=== PATIENT | male | born 1955 | race Caucasian/White ===

== ENCOUNTER 2022-04-15 16:24 | Emergency (ER) | payer OTHER, MEDICARE ==
[~2022-04-15] VITALS: Ht 180.3 cm; Wt 108.8 kg
[2022-04-15 16:30] VITALS: BP 158/90
--- NOTE | 2022-04-15 16:43 | ED General ---
General Chief Complaint: Medical Screening Exam Stated Complaint: MEDICAL CLEARANCE Source of Information: Patient History of Present Illness Date Seen by Provider: April 15, 2022 Time Seen by Provider: 16:29 Initial Comments 66-year-old male brought in by police for medical clearance to go to snf. Patient states he has no complaints. He had crushed up half of a hydrocodone 10/325 mg pill and snorted it prior to the police taking him into custody. He states he does occasionally to help get the medicine into the system faster. He denies having any acute pain currently. He has chronic pain from rheumatoid arthritis. He states that is currently controlled. He has no current medical complaints. Associated Systoms: No Chest Pain; Cough (intermittent); No Diaphoresis, No Fever/Chills, No Headaches, No Loss of Appetite, No Malaise, No Nausea/Vomiting, No Rash, No Seizure, No Shortness of Air, No Syncope, No Weakness Allergies and Home Medications Allergies Coded Allergies: No Known Drug Allergies (Unverified , 04/15/22) Patient Home Medication List Home Medication List Reviewed: Yes Review of Systems Review of Systems Constitutional: no symptoms reported EENTM: no symptoms reported Respiratory: cough (intermittent) Cardiovascular: no symptoms reported Gastrointestinal: no symptoms reported Genitourinary: no symptoms reported Musculoskeletal: see HPI (chronic pain from Rheumatoid Arthritis) Skin: no symptoms reported Psychiatric/Neurological: No Symptoms Reported Past Vtxwibh-Fgqhke-Tienjw Hx Past Medical History Surgery/Hospitalization HX: Rheumatoid Arthritis Physical Exam Vital Signs Vital Signs - First Documented 04/15/22 16:30 Temp 36.3 Pulse 83 Resp 18 B/P (MAP) 158/90 (112) Pulse Ox 97 O2 Delivery Room Air Capillary Refill : Height, Weight, BMI Height: '" Weight: lbs. oz. 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 He has no hypoxia or signs of airway compromise. He takes the pain medicine chronically so lab work would not be beneficial. Encouraged to take the medicine as prescribed and not crush and snort it. Follow-up with his regular provider for continued concerns Departure Impression Primary Impression: Encounter for medical screening examination Disposition: HOME, SELF-CARE Condition: Stable Departure-Patient Inst. Decision time for Depature: 16:41 Referrals: [facility] [place] Follow up with Dr. Vidal Partida as needed for continued concerns Patient Instructions: Medication Safety, Adult Add. Discharge Instructions: Medically clear for incarceration Take medicine as prescribed by your doctor. If having continued concerns check back with Dr. Partida or provider of your choice next week All discharge instructions reviewed with patient and/or family. Voiced understanding. SANDRITA OCAMPO MD April 15, 2022 16:43
== END 2022-04-15 16:53 | disposition home or self-care (01) ==
LOC: ER FS 16:26
DX: Z02.89 Encounter for other administrative examinations (principal)
CPT/HCPCS: 99281